=== PATIENT | male | born 1970 | race Two or more races ===

== ENCOUNTER 2021-07-01 12:24 | Emergency (ER) | payer OTHER ==
[~2021-07-01] VITALS: Ht 170.2 cm; Wt 117.9 kg
[2021-07-01] MEDS ORDERED: METFORMIN HCL500 MG (12:56)
[2021-07-01] MEDS ORDERED: PREDNISONE20 M1 PO (16:20)
[2021-07-01] MEDS ORDERED: B COMPLEX1 EACH PO (16:20)
== END 2021-07-01 16:29 | disposition home or self-care (01) ==
LOC: ER 12:24
DX: G51.0 Bell's palsy (principal)